=== PATIENT | female | born 1965 | race Caucasian/White ===

== ENCOUNTER → 2017-01-29 | Outpatient (CLI) | payer BC ==
--- NOTE | 2017-01-29 17:09 | US ---
EXAMINATION: Carotid US with damico scale and duplex imaging. HISTORY: Spastic hemiplegia FINDINGS: Ultrasound examination of bilateral cervical carotid arteries was performed using damico scale and dup percy imaging. Moderate scattered atheromatous plaque is noted within the carotid arteries bilaterall y.. Antegrade flow is noted within the vertebral arteries. These are the peak velocities in cm per second (systole), right and left respectively, by a comma: CCA (common carotid artery) - 71, 98 ICA (internal carotid artery) - 97, 242 ECA (External carotid artery) - 78, 154 ICA/CCA systolic ratio Right - 1.4 Left - 3.7 IMPRESSION: 1. There is 70-99% stenosis noted within the left internal carotid artery, midportion. 2. There is less than 50% stenosis noted within the right internal carotid artery.
--- NOTE | 2017-01-29 17:15 | MR ---
EXAMINATION: MRI of the brain without contrast HISTORY: Spastic hemiplegia COMPARISON: CT dated 08/16/2015 TECHNIQUE: Multiplanar and multisequence images obtained through the brain without contrast. FINDINGS: There is extensive encephalomalacia within the left frontal, parietal, and occipital josue x. Overall this appears similar in appearance to the previous CT examination. Artifact is noted with in the region of the right cavernous sinus and along the right frontal convexity. There is no defini te abnormal diffusion restriction identified. Expected flow voids are present. No mass, mass effect, or midline shift. The maxillary sinuses and mastoid air cells are clear. The orbits and globes are symmetric. The optic nerve pathways appear normal. Craniocervical junction and cerebellopontine angl es appear normal. Cerebellum and midbrain are normal in signal. No evidence of hemorrhage or an acut e infarct. No extra-axial fluid collections identified. IMPRESSION: 1. 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 2. Artifact within the right cavernous sinus and along the right frontal calvarium, suggestive of pr evious aneurysm clip/coiling. 2. No acute intracranial finding identified.
== END ==
LOC: MW.US 13:15
PROVIDERS: ATTEND Emergency Medicine
DX: G81.11 Spastic hemiplegia affecting right dominant side (principal); R09.89 Other specified symptoms and signs involving the circulatory and respiratory systems
CPT/HCPCS: 70551; 70551-26; 93880; 93880-26